=== PATIENT | female | born 1935 | race Caucasian/White ===

== ENCOUNTER 2020-11-18 08:15 | Day surgery (SDC) | payer MEDICARE, OTHER, MEDICAID ==
[~2020-11-18] VITALS: Ht 152.4 cm; Wt 46.9 kg
[2020-11-18] VITALS (10 sets, daily range): BP systolic 112–131; BP diastolic 55–71
[2020-11-18] MEDS ORDERED: cefazolin/dext.iso 2gm/50ml 50 ML IV ONE (08:55)
[2020-11-18] MEDS ORDERED: normal saline 1000ml 1,000 ML IV SCH ×2 (08:55→12:45)
[2020-11-18] MEDS ORDERED: FURO20TA4 PO (09:50)
[2020-11-18] MEDS ORDERED: HYDR-3964 PO (09:50)
[2020-11-18] MEDS ORDERED: DONE10TA44 PO (09:50)
[2020-11-18] MEDS ORDERED: METO25TA6 PO (09:50)
[2020-11-18] MEDS ORDERED: OMEP40CA13 PO (09:50)
[2020-11-18 10:01] LABS: BASOPHILS # (AUTO) 0.1 X10'3 (0-0.2); BASOPHILS % (AUTO) 0.6 % (0-1); EOSINOPHILS # (AUTO) 0.4 X10'3 (0-0.9); EOSINOPHILS % (AUTO) 3.7 % (0-6); HEMATOCRIT 39.9 % (35.0-45.0); HEMOGLOBIN 13.3 g/dl (12.0-16.0); LYMPHOCYTES # (AUTO) 2.6 X10'3 (1.1-4.8); LYMPHOCYTES % (AUTO) 26.3 % (21-51); MEAN CORPUSCULAR HEMOGLOBIN 31.1 PG (27.0-31.0); MEAN CORPUSCULAR HGB CONC 33.3 g/dL (33.0-36.5); MEAN CORPUSCULAR VOLUME 93.4 FL (78-98); MEAN PLATELET VOLUME 8.6 FL (7.4-10.4); MONOCYTES # (AUTO) 0.8 X10'3 (0-0.9); MONOCYTES % (AUTO) 8.3 % (2-12); NEUTROPHILS # (AUTO) 6.1 X10'3 (1.8-7.7); NEUTROPHILS % (AUTO) 61.1 % (42-75); PLATELET COUNT 341 X10'3 (140-440); RED BLOOD COUNT 4.27 X10'6 (4.20-5.60); RED CELL DISTRIBUTION WIDTH 14.9 % (11.5-14.5); WHITE BLOOD COUNT 9.9 X10'3 (4.5-11.0)
[2020-11-18] MEDS ORDERED: ASCO500C17 PO (10:05)
[2020-11-18] MEDS ORDERED: MIRT15TA3 PO (10:05)
[2020-11-18] MEDS ORDERED: GABA300T26 PO (10:05)
[2020-11-18] MEDS ORDERED: ASPI-611 PO (10:05)
[2020-11-18] MEDS ORDERED: ACET-1025 PO (10:05)
[2020-11-18] MEDS ORDERED: ESZO2TAB22 PO (10:05)
[2020-11-18] MEDS ORDERED: midazolam 1 mg/ML 2ml injection ONE ×2 (11:11→11:46)
[2020-11-18] MEDS ORDERED: fentaNYL/PF 50MCG/1 ML 2ML syringe ONE ×2 (11:11→11:46)
[2020-11-18] MEDS ORDERED: LIDOcaine 1%/PF 5ML 10 MG/ML VIAL ONE (11:24)
[2020-11-18] MEDS ORDERED: iohexol 300 MG/1 ML 50ml polymer ONE (11:25)
[2020-11-18] MEDS ORDERED: diphenhydrAMINE 50 mg/ml inj ONE (11:31)
[2020-11-18] MEDS ORDERED: HYDROcodone/acetaminophen 5mg/325mg tablet PO PRN (12:45)
[2020-11-18] MEDS ORDERED: morphine 4 MG/ML inj SYRINge IV PRN (12:45)
== END 2020-11-18 16:15 | disposition home or self-care (01) ==
LOC: SSTAY O 08:15
PROVIDERS: ATTEND Radiology Diagnostic Radiology
DX: M80.88XA Other osteoporosis with current pathological fracture, vertebra(e), initial encounter for fracture (principal); Z20.822 Contact with and (suspected) exposure to COVID-19; Z88.8 Allergy status to other drugs, medicaments and biological substances; M54.5 Low back pain; Z91.041 Radiographic dye allergy status
CPT/HCPCS: 22514; 36415; 85025; 87635; 99152; 99153; C1713; C9803; J1200; J2250; J3010; J7030; Q9967